=== PATIENT | male | born 1975 | race Caucasian/White ===

== ENCOUNTER 2019-07-27 09:55 | Emergency (ER) | payer BC, SELFPAY ==
[2019-07-27 10:04] VITALS: BP 121/82; PULSE 56; RESP 20; TEMP 35.9; O2SAT 100
--- NOTE | 2019-07-27 10:23 | ED.URI ---
HPI - URI/Sore Throat General Chief Complaint: Upper Respiratory Infection Stated Complaint: body aches/cough/sore throat/fever/vomiting Time Seen by Provider: 07/27/19 10:23 Source: patient and RN notes reviewed History of Present Illness HPI Narrative: Patient is a 44-year-old male that presents the urgent care with complaints of body aches, fatigue, cough, sore throat, chills, sweats, nausea, vomiting. Patient states that it started on Wednesday and he has not vomited within the last 24 hours. Patient states that he did get his flu shot. Denies of any wheezing or shortness of breath. Patient has been using DayQuil [id number] without much symptom relief. No other acute complaints. Patient does appear fatigued. Otherwise, no acute distress noted. Patient read the plan of care. Related Data Allergies Allergy/AdvReac Type Severity Reaction Status Date / Time No Known Allergies Allergy Unverified 07/27/19 10:03 Review of Systems Review of Systems: Narrative: CONSTITUTIONAL: Reports of chills and sweats with fatigue EYES: Denies visual changes, redness, or discharge. ENT: Reports of sore throat, sinus congestion CARDIOVASCULAR: Denies chest pain, palpitations, or edema. RESPIRATORY: Reports of nonproductive cough without dyspnea or wheezing GASTROINTESTINAL: Denies abdominal pain, nausea, vomiting, or diarrhea. GENITOURINARY: Denies dysuria or hematuria. SKIN: Denies rash or itching. MUSCULOSKELETAL: Denies back pain, joint pain; reports of body aches NEUROLOGIC: Denies headache, numbness, or weakness. All other systems reviewed are negative, except as documented in HPI. PMFSH Family History Family History (Updated 10/22/11 @ 09:22 by DOCTOR UNKNOWN) Other Cerebrovascular accident Hypertension Social History Social History Alcohol intake: current Comments At the time of my signature, I reviewed and agree with the nursing past medical, surgical, social, and family history. There is no relevant family history pertinent to the patient complaint. Exam Narrative: Exam Narrative: GENERAL: This is a well-nourished, well-developed patient, appears fatigued and slightly flushed HEAD: normocephalic, atraumatic. EYES: PERRL. Sclera clear/white. Vision is grossly intact. EARS: External ears normal, auditory canals clear and without drainage, TMs normal without perforation. Hearing grossly intact. NOSE: External nose normal with no obvious nasal discharge, bilateral erythemic nares with clear rhinorrhea THROAT: Mucous membranes moist, posterior pharynx clear. Mild postnasal drainage NECK: Neck supple CARDIOVASCULAR: Regular rate and rhythm without murmurs, gallops, or rubs. RESPIRATORY: Clear to auscultation. Breath sounds equal bilaterally. No wheezes, rales, or rhonchi. SKIN: warm, intact with no suspicious lesions or rash, good texture and turgor. NEURO: awake, alert, and oriented to person, place and time. There were no obvious focal neurologic abnormalities. EXTREMITIES: No clubbing, cyanosis, or edema. Course Vital Signs Vital signs: Vital Signs Temperature 96.7 F L 07/27/19 10:04 Pulse Rate 56 L 07/27/19 10:04 Respiratory Rate 07/27/19 10:04 Blood Pressure 121/82 07/27/19 10:04 Pulse Oximetry 100 07/27/19 10:04 Temperature 96.7 F L 07/27/19 10:04 Pulse Rate 56 L 07/27/19 10:04 Respiratory Rate 07/27/19 10:04 Blood Pressure 121/82 07/27/19 10:04 Pulse Oximetry 100 07/27/19 10:04 Reviewed MDM - URI/Sore Throat MDM Narrative Medical decision making narrative: Reviewed lab results with the patient. He is aware that he is positive for influenza A. Take Xofluza as prescribed. Make sure to eat and drink with the medication. Treat symptoms with [id number] medication such as Robitussin/Delsym for cough, Claritin for allergy-like symptoms, Flonase for nasal congestion, Tylenol/Motrin for fever/body aches. Increase fluids, especially water and rest. Use a humidi
== END 2019-07-27 10:45 | disposition home or self-care (01) ==
PROVIDERS: Emergency Provider Nurse Practitioner Family; PCP Family Medicine
DX: J10.1 Influenza due to other identified influenza virus with other respiratory manifestations (principal)
CPT/HCPCS: 87804; 99213; G0463

== ENCOUNTER 2021-06-06 12:05 | Outpatient (RCR) | payer BC, SELFPAY ==
[2021-06-06] MEDS: diphenhydrAMINE HCl CAP 25 MG CAPSULE PO (12:34)
[2021-06-06] MEDS: ACETAMINOPHEN 325 MG TABLET 650 MG PO (12:35)
[2021-06-06] MEDS: FAMOTIDINE 20 MG TABLET PO (12:35)
[2021-06-06 12:37] VITALS: BP 140/92; PULSE 61; RESP 18; TEMP 36.6; O2SAT 100
[2021-06-06 14:02] VITALS: BP 145/83; PULSE 55; O2SAT 100
== END 2021-06-06 17:00 ==
LOC: AMCINF 12:05
PROVIDERS: PCP Family Medicine; Visit Provider Internal Medicine Hematology & Oncology
DX: U07.1 COVID-19 (principal); D84.9 Immunodeficiency, unspecified; Z85.528 Personal history of other malignant neoplasm of kidney
CPT/HCPCS: A9270; M0247; Q0247

== ENCOUNTER 2022-08-19 10:51 | Emergency (ER) | payer BC, SELFPAY ==
--- NOTE | ~2022-08-19 | XR_ITS ---
XR tibia fibula LT 2V DATE: 08/19/2022 11:17 INDICATION: Injury. Anterior left lower leg pain TECHNIQUE: AP and lateral views COMPARISON: None FINDINGS: Mild plantar calcaneal enthesopathy without erosive change or periostitis. No fracture or dislocation, periosteal reaction or bone destruction of the tibia or fibula. Normal al ignment at the knee and ankle joints. IMPRESSION: No significant abnormality of the tibia or fibula Mild plantar calcaneal enthesopathy Reviewed, dictated and finalized at location B.
[2022-08-19 11:00] VITALS: BP 125/79; PULSE 71; RESP 16; TEMP 36.3; O2SAT 97
--- NOTE | 2022-08-19 11:03 | ED.LOWEXIN ---
HPI - Extremity Injury (Lower) General Chief Complaint: Extremity Injury, Lower Stated Complaint: lt leg leg injury Time Seen by Provider: 08/19/22 11:03 Source: patient Mode of arrival: ambulatory Limitations: no limitations History of Present Illness HPI Narrative: 47-year-old male presents with complaint of pain and swelling to left de la o radiating down into left ankle. 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 States that he missed the post and hit himself in the leg. Reports that he has bruising and swelling that he thought that he would then be getting better by now. 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 States he is going out of town to [place] and does not want to have a bad infection on trip. Ambulatory with steady gait. All systems reviewed and negative except as noted above. Related Data Home Medications Medication Instructions Recorded Confirmed multivitamin with minerals-folic 2 tablet PO DAILY 06/06/21 08/19/22 acid 200 mcg chewable tablet (Multivitamin Gummies) Allergies Allergy/AdvReac Type Severity Reaction Status Date / Time No Known Allergies Allergy Verified 08/19/22 11:07 Review of Systems Review of Systems: CONSTITUTIONAL: Denies fever, chills, or sweats. EYES: Denies visual changes, redness, or discharge. ENT: Denies rhinorrhea, congestion, sore throat, or otalgia. CARDIOVASCULAR: Denies chest pain, palpitations, or edema. RESPIRATORY: Denies cough or dyspnea. GASTROINTESTINAL: Denies abdominal pain, nausea, vomiting, or diarrhea. GENITOURINARY: Denies dysuria or hematuria. SKIN: Denies rash or itching. MUSCULOSKELETAL: Reports pain to anterior aspect left lower leg radiating into left ankle with swelling and bruising. NEUROLOGIC: Denies headache, numbness, or weakness. PSYCHIATRIC: Denies anxiety or depression. All other systems reviewed are negative, except as documented in HPI. [facility] Past Medical History Medical History Renal cancer Surgical History Surgical History Brain tumor removed in 2008 H/O hernia repair age 1 H/O kidney removal History of throat surgery throat abscess removed 1999 Pilonidal cyst x2 Family History Family History Other Cerebrovascular accident Hypertension Social History Social History Smoking packs per day: 1 Smoking cigarettes per day: 20.0 Years smoked: 6 Smoking pack-years: 6.00 Smoking status: Former smoker Additional smoking assessment comments: QUIT 2011? Alcohol intake: current Drinks per week: 2 Substance use: never Substance use type: does not use Living arrangements: with family Occupation/Education: occupation Additional occupation/education comments: [employer] Gender identity (if verbalized by the patient): Male Spiritual care concerns: No Comments At time of signature, agree with nursing past medical, surgical, social and family history. There is no relevant family history pertinent to the presenting complaint. Exam Narrative: GENERAL: This is a well-nourished, well-developed patient, in no apparent distress. HEAD: normocephalic, atraumatic. EYES: PERRL. Sclera clear/white. Vision is grossly intact. EARS: External ears normal NOSE: External nose normal NECK: Neck supple, non-tender without lymphadenopathy, masses or thyromegaly. CARDIOVASCULAR: Regular rate and rhythm without murmurs, gallops, or rubs. RESPIRATORY: Clear to auscultation. Breath sounds equal bilaterally. No wheezes, rales, or rhonchi. SKIN: warm, Dry, intact with no suspicious lesions or rash, good texture and turgor. NEURO: awake, alert, and oriented to person, place and time. T
== END 2022-08-19 12:30 | disposition home or self-care (01) ==
PROVIDERS: Emergency Provider Nurse Practitioner Family; PCP Family Medicine
DX: S80.12XA Contusion of left lower leg, initial encounter (principal); L03.116 Cellulitis of left lower limb; Z87.891 Personal history of nicotine dependence; Z85.528 Personal history of other malignant neoplasm of kidney; W22.8XXA Striking against or struck by other objects, initial encounter
CPT/HCPCS: 73590; 99213; G0463

== ENCOUNTER 2022-12-17 08:00 | Emergency (ER) | payer BC, SELFPAY ==
--- NOTE | 2022-12-17 08:06 | ED.URI ---
HPI - URI/Sore Throat General Chief Complaint: Upper Respiratory Infection Stated Complaint: HEAD COLD/HEADACHE/BODY ACHES Time Seen by Provider: 12/17/22 08:06 Source: patient, RN notes reviewed and old records reviewed Mode of arrival: ambulatory Limitations: no limitations History of Present Illness HPI Narrative: 47-year-old male presents to the [facility] with complaints of a headache, body aches that started 3 days ago. Reports that he just returned from [place]. Has taken [id number] products Reports low-grade fever yesterday. States that he is feeling better today Onset (ago): day(s) (3) Treatments prior to arrival: cold medicine Related Data Home Medications Medication Instructions Recorded Confirmed multivitamin with minerals-folic 2 tablet PO DAILY 06/06/21 12/17/22 acid 200 mcg chewable tablet (Multivitamin Gummies) Allergies Allergy/AdvReac Type Severity Reaction Status Date / Time No Known Allergies Allergy Verified 12/17/22 08:18 Review of Systems Review of Systems: All systems reviewed & are unremarkable except as noted in HPI and below Constitutional: Constitutional: Reports as per HPI, Reports body ache(s), Reports chills, Reports fatigue, Reports fever(s), Reports headache(s) and Reports malaise Eyes: Eyes: Reports no additional eye complaints ENT: Reports as per HPI, Reports headache(s) and Reports nasal congestion Cardiovascular: Cardiovascular: Reports no additional cardiovascular complaints, Denies chest pain and Denies dyspnea Respiratory: Respiratory: Reports as per HPI, Denies chest congestion, Reports cough and Denies dyspnea Gastrointestinal: Gastrointestinal: Reports no additional gastrointestinal complaints, Denies abdominal pain, Denies nausea and Denies vomiting Musculoskeletal: Musculoskeletal: Reports no additional musculoskeletal complaints Integumentary/Breasts: Skin/Breast: Reports system reviewed and no additional complaints, except as docu Neurologic: Reports system reviewed and no additional complaints, except as documented Psychiatric: Psychiatric: Reports no additional psychiatric complaints Allergic/Immunologic: Allergic/Immunologic: Reports no additional allergic/immunologic complaints PMFSH Past Medical History Medical History Meningioma Renal cancer Surgical History Surgical History Brain tumor removed in 2008 H/O hernia repair age 1 H/O kidney removal History of throat surgery throat abscess removed 1999 Pilonidal cyst x2 Family History Family History Other Cerebrovascular accident Hypertension Social History Social History Smoking packs per day: 1 Smoking cigarettes per day: 20.0 Years smoked: 6 Smoking pack-years: 6.00 Smoking status: Former smoker Additional smoking assessment comments: QUIT 2011? Alcohol intake: current Drinks per week: 2 Substance use: never Substance use type: does not use Lack of Transportation: No Lack of Food: Never True Current Housing: I Have Housing Concerned About Future Housing: No Difficulty Paying Gas/Electric Bills: No Difficulty Paying for Meds: No Currently Unemployed: No Education: High School Diploma/GED Difficulty w/ Childcare or Family Care: No Living arrangements: with family Occupation/Education: occupation Additional occupation/education comments: [employer] Gender identity (if verbalized by the patient): Male Spiritual care concerns: No Comments At the time of my signature, I reviewed and agree with the nursing past medical, surgical, social, and family history. There is no relevant family history pertinent to the patient complaint. Exam Const: General: cooperative, comfortable, no acute distress, well develo
[2022-12-17 08:20] VITALS: BP 107/82; PULSE 79; RESP 20; TEMP 36.6; O2SAT 100
== END 2022-12-17 08:36 | disposition home or self-care (01) ==
PROVIDERS: Emergency Provider Nurse Practitioner; PCP Family Medicine
DX: U07.1 COVID-19 (principal); Z87.891 Personal history of nicotine dependence; Z85.528 Personal history of other malignant neoplasm of kidney; Z90.5 Acquired absence of kidney
CPT/HCPCS: 87426; 87804; 99213; C9803; G0463

== ENCOUNTER 2024-04-09 12:11 | Emergency (ER) | payer OTHER, SELFPAY ==
[2024-04-09 12:19] VITALS: BP 152/98; PULSE 60; RESP 18; TEMP 36.6; O2SAT 100
--- NOTE | 2024-04-09 14:37 | ED.WOUNDLAC ---
HPI - Wound/Laceration General Chief Complaint: Wound/Laceration Stated Complaint: left thumb laceration Time Seen by Provider: 04/09/24 14:07 Source: patient Mode of arrival: ambulatory Limitations: no limitations History of Present Illness HPI narrative: this is a 49-year-old male that presents to the emergency department for laceration of the left 1st finger. Sustained just prior to arrival. Reports he is up-to-date on tetanus. Denies decreased range of motion. Related Data Home Medications Medication Instructions Recorded Confirmed multivitamin with minerals-folic 2 tablet PO DAILY 06/06/21 12/17/22 acid 200 mcg chewable tablet (Multivitamin Gummies) Allergies Allergy/AdvReac Type Severity Reaction Status Date / Time No Known Allergies Allergy Verified 04/09/24 12:12 Review of Systems Review of Systems: CONSTITUTIONAL: Denies fever SKIN: Reports laceration NEUROLOGIC: Denies numbness All systems reviewed & are unremarkable except as noted in HPI and below PMFSH Past Medical History Medical History Meningioma Renal cancer Surgical History Surgical History Brain tumor removed in 2008 H/O hernia repair age 1 H/O kidney removal History of throat surgery throat abscess removed 1999 Pilonidal cyst x2 Family History Family History Other Cerebrovascular accident Hypertension Social History Social History Smoking packs per day: 1 Smoking cigarettes per day: 20.0 Years smoked: 6 Smoking pack-years: 6.00 Smoking status: Former smoker Additional smoking assessment comments: QUIT 2011? Alcohol intake: current Drinks per week: 2 Substance use: never Substance use type: does not use Lack of Transportation: No Lack of Food: Never True Current Housing: I Have Housing Concerned About Future Housing: No Difficulty Paying Gas/Electric Bills: No Difficulty Paying for Meds: No Currently Unemployed: No Education: High School Diploma/GED Difficulty w/ Childcare or Family Care: No Living arrangements: with family Occupation/Education: occupation Additional occupation/education comments: [employer] Gender identity (if verbalized by the patient): Male Spiritual care concerns: No Exam Narrative: GENERAL: Well-appearing, well-nourished, and in no acute distress. HEAD: Normocephalic, atraumatic. EYES: EOMI. EXTREMITIES: Normal range of motion. No edema. 2.5 cm flap laceration to the left 1st finger dorsal surface SKIN: Warm, dry, no rash. NEURO: No focal deficits. Alert and oriented x3. PSYCH: Normal mood and affect Course Vital Signs Vital signs: Vital Signs Temperature 97.8 F 04/09/24 12:19 Pulse Rate 60 04/09/24 12:19 Respiratory Rate 18 04/09/24 12:19 Blood Pressure 152/98 H 04/09/24 12:19 Pulse Oximetry 100 04/09/24 12:19 Oxygen Delivery Room Air 04/09/24 12:19 Temperature 97.8 F 04/09/24 12:19 Pulse Rate 60 04/09/24 12:19 Respiratory Rate 18 04/09/24 12:19 Blood Pressure 152/98 H 04/09/24 12:19 Pulse Oximetry 100 04/09/24 12:19 Oxygen Delivery Room Air 04/09/24 12:19 Procedures Laceration Laceration 1: Date: 04/09/24 Time: 14:40 Site: hand Side (If applicable): left Size (cm): 2.5 Description: flap Depth: simple, single layer Local Anesthetic: lidocaine 1% Amount of anesthesia used (mL): 1 Pre-repair: wound explored and irrigated ====== Skin Level ====== Skin layer closed with: nylon Size (cm): 4-0 Number of sutures: 3 Technique: simple, interrupted ====== Subcutaneous Layer ====== ====== Muscle Layer ====== ====== Tendon Layer ====== MDM - Wound/Laceration MDM Narrative Medical decision making narrative: Patient presents to the emergency department for laceration to his left 1st finger sustained just prior to arrival. He is neurovascularly intact. He is up-to-date on tetanus vaccination. Wound was irrigated and closed with sutures. He was educated on further wound care. He is to follow up with primary provider. He was given warnings to return to the ER Differential Diagnosis Differential diagnosis: Likely laceration, abrasion and avulsion of skin Critical Care Time Critical Care Time Critical Care Time: No Discharge Plan Discharge Clinical Impression: Laceration Patient Disposition: Home, Self-Care Condition: Stable Instructions: Antibiotic Form, Care For Your Stitches (ED), Laceration (ED) Additional Instructions: Return to the emergency department if you experience fever, redness or swelling of your wound, abnormal drainage from your wound, or any other symptoms that are concerning to you. Apply antibiotic ointment daily. Do not soak the wound. Clean with mild soap and water daily. Take oral antibiotics as prescribed Follow-up with your primary care doctor for suture removal in 10-14 days. Prescriptions: New cephalexin 500 mg capsule 500 mg PO Q8H 5 Days Qty: 15 0RF No Action Multivitamin Gummies 200 mcg Tablet,Chewable 2 tablet PO DAILY meloxicam 15 mg tablet 15 mg PO DAILY Qty: 90 0RF Follow-up/Referrals: Berry iWlson MD [Primary Care Provider] - 2 Weeks
== END 2024-04-09 14:53 | disposition home or self-care (01) ==
LOC: ANHED 14:41
PROVIDERS: Emergency Provider Physician Assistant; PCP Family Medicine
DX: S61.012A Laceration without foreign body of left thumb without damage to nail, initial encounter (principal); Z85.528 Personal history of other malignant neoplasm of kidney; Z87.891 Personal history of nicotine dependence; Z90.5 Acquired absence of kidney; W26.8XXA Contact with other sharp object(s), not elsewhere classified, initial encounter
CPT/HCPCS: 12002; 99283; J2003